=== PATIENT | female | born 1985 | race Caucasian/White ===

== ENCOUNTER 2018-04-16 22:00 | Inpatient (IN) | payer OTHER ==
[~2018-04-16 22:00] MED LIST: Bupivacaine 0.25% HCL 30 ML VIAL ONE
[2018-04-17] MEDS ORDERED: Methylergonovine 0.2 MG/ML VIAL IM PRN (00:10)
[2018-04-17] MEDS ORDERED: Butorphanol Tartrate 1 MG/ML VIAL SLOW IVP PRN (00:10)
[2018-04-17] MEDS ORDERED: NS w/ Oxytocin 10 units 500 ML IV SCH ×2 (00:10)
[2018-04-17] MEDS ORDERED: Diphenoxylate HCl/Atropine Tablet PO PRN (00:10)
[2018-04-17] MEDS ORDERED: Lidocaine 1% (PF) 30 ML VIAL SC PRN (00:10)
[2018-04-17] MEDS ORDERED: HYDROcodone/Acetaminophen 5/325 mg Tablet PO PRN ×2 (00:10→22:32)
[2018-04-17] MEDS ORDERED: Ondansetron HCl/PF 4 MG/2 ML Vial IVP PRN ×2 (00:10→22:32)
[2018-04-17] MEDS ORDERED: Ibuprofen 800 MG TAB PO PRN (00:10)
[2018-04-17] MEDS ORDERED: Misoprostol 200 MCG TAB PR PRN (00:10)
[2018-04-17] MEDS ORDERED: Carboprost 250 MCG/ML AMP IM PRN (00:10)
[2018-04-17 00:33] VITALS: BMI 40.7
[2018-04-17] MEDS: Lactated Ringer's 1,000 ML IV SCH ×4 (01:03→19:24)
[2018-04-17] MEDS: Misoprostol 100 MCG TAB PO SCH ×2 (01:11→05:25)
[2018-04-17 01:16] LABS: Hemoglobin 11.9 g/dL (12.0-16.0); Mean Corpuscular HGB CONC 33.4 g/dL (32.0-36.0); Mean Corpuscular Hemoglobin 29.7 pg (27.0-31.0); Mean Corpuscular Volume 88.7 fL (78.0-98.0); Platelet Count 149 thou/uL (130-400); RBC Distribution Width 12.2 % (11.5-14.5); White Blood Cell (WBC) Count 9.5 thou/uL (4.8-10.8)
[2018-04-17 01:53] LABS: HBSAg Index 0.22 S/CO (0-0.99); Hep B Surf Ag Non-Reactive S/CO (NonReactive)
[2018-04-17 04:35] LABS: Syphilis Antibody Nonreactive (Nonreactive); Syphilis Antibody Index 0.05 S/CO (<1.00 Non-Reactive)
[2018-04-17] MEDS ORDERED: Fentanyl 4 mcg/Bup 0.1% Cadd 100 ML ONE (18:35)
[2018-04-17] MEDS: NS / Oxytocin 40 units/1000ml 1,000 ML IV PRN ×2 (20:15→22:25)
[2018-04-17] MEDS ORDERED: Milk Of Magnesia 30 ML UDCUP PO PRN (22:32)
[2018-04-17] MEDS ORDERED: Bisacodyl 10 MG SUPP PR PRN (22:32)
[2018-04-17] MEDS ORDERED: Lanolin Ointment 7 GM TUBE TOP PRN (22:32)
[2018-04-17] MEDS ORDERED: NS / Oxytocin 40 units/1000ml 1,000 ML IV SCH (22:32)
[2018-04-17] MEDS ORDERED: diphenhydrAMINE 25 MG CAP PO PRN (22:32)
[2018-04-17] MEDS ORDERED: Benzocaine/Menthol 20-0.5% 60 ML CAN TOP PRN (22:32)
[2018-04-17] MEDS ORDERED: Ibuprofen 800 MG TAB PO SCH (23:00)
[2018-04-17] MEDS: Docusate Calcium (SURFAK) 240 MG CAP PO SCH (23:01)
[2018-04-18] MEDS: Hydrocortisone/Pramoxine (Proctofoam HC) 10 GM BOX TOP SCH ×3 (01:09→21:57)
[2018-04-18] MEDS: HYDROcodone/Acetaminophen 5/325 mg Tablet PO PRN (03:09)
[2018-04-18 04:59] LABS: Mean Corpuscular Hemoglobin 29.5 pg (27.0-31.0); Mean Corpuscular Volume 89.5 fL (78.0-98.0); Mean Platelet Volume 10.6 fL (7.4-10.4); Platelet Count 142 thou/uL (130-400); Red Blood Cell (RBC) Count 3.73 mill/uL (4.20-5.40); White Blood Cell (WBC) Count 12.9 thou/uL (4.8-10.8)
[2018-04-18] MEDS: Ibuprofen 800 MG TAB PO SCH ×3 (05:58→19:10)
[2018-04-18] MEDS: Docusate Calcium (SURFAK) 240 MG CAP PO SCH ×2 (17:28→21:57)
[2018-04-18] MEDS: Ferrous Sulfate 325 MG TAB PO SCH ×2 (17:28→18:12)
[2018-04-18] MEDS: Prenatal Vitamin 1 TAB PO SCH (17:28)
[2018-04-19] MEDS: HYDROcodone/Acetaminophen 5/325 mg Tablet PO PRN (00:28)
[2018-04-19] MEDS: Ibuprofen 800 MG TAB PO SCH ×2 (06:22→14:28)
[2018-04-19] MEDS: Docusate Calcium (SURFAK) 240 MG CAP PO SCH (08:49)
[2018-04-19] MEDS: Prenatal Vitamin 1 TAB PO SCH (08:49)
[2018-04-19] MEDS: Hydrocortisone/Pramoxine (Proctofoam HC) 10 GM BOX TOP SCH (08:50)
[2018-04-19] MEDS: Ferrous Sulfate 325 MG TAB PO SCH (08:50)
[2018-04-19 13:18] VITALS: BP 125/79; TEMP 98.1
== END 2018-04-19 15:05 | disposition home or self-care (01) | DRG 807 ==
LOC: L&D 23:39 → 3SE 04-17 22:32
PROVIDERS: ADMIT Family Medicine; ATTEND Family Medicine
PROC: 10907ZC Drainage of Amniotic Fluid, Therapeutic from Products of Conception, Via Natural or Artificial Opening (ICD-10-PCS; principal; 2018-04-17)
PROC: 10E0XZZ Delivery of Products of Conception, External Approach (ICD-10-PCS; 2018-04-17)
PROC: 3E033VJ Introduction of Other Hormone into Peripheral Vein, Percutaneous Approach (ICD-10-PCS; 2018-04-17)
DX: O80 Encounter for full-term uncomplicated delivery (principal); Z37.0 Single live birth; Z3A.39 39 weeks gestation of pregnancy
CPT/HCPCS: 36415; 85027; 86780; 86850; 86900; 86901; 87340; J0595; J2001; J2405; S0020